=== PATIENT | male | born 1980 | race Caucasian/White ===

== ENCOUNTER 2019-04-30 07:24 | Emergency (ER) | payer BC ==
[~2019-04-30] VITALS: Ht 177.8 cm; Wt 87.5 kg
[~2019-04-30 07:24] MED LIST: CEPH500 PO; DIAZ5 PO; HYDACE5325 PO; NAPR550 PO; SULTRIDS PO
[2019-04-30] MEDS ORDERED: Norco 5-325 Ta1 EACH PO (08:55)
[2019-04-30] MEDS ORDERED: IBUP800 PO (08:55)
== END 2019-04-30 09:00 | disposition home or self-care (01) ==
LOC: ER 07:24
DX: M54.6 Pain in thoracic spine (principal)
CPT/HCPCS: 96372; 99283-25; J1170; J1885

== ENCOUNTER → 2021-06-08 | Outpatient (CLI) | payer BC ==
[~2021-06-08] MED LIST changes: +IBUP800 PO; +Norco 5-325 Ta1 EACH PO
[2021-06-08 12:23] LABS: BASOPHILS ABSOLUTE AUTO 0.05 K/mm3 (0.00-0.23); BASOPHILS PERCENT AUTO 1 % (0-2); EOSINOPHILS PERCENT AUTO 1 % (0-6); Hematocrit 43.7 % (37.0-53.0); Hemoglobin 14.7 g/dL (13.5-17.5); IMMATURE GRAN ABSOLUTE AUTO 0.04 K/mm3 (0.00-0.10); IMMATURE GRAN PERCENT AUTO 0 % (0-1); LYMPHOCYTES ABSOLUTE AUTO 1.97 K/mm3 (0.84-5.20); LYMPHOCYTES PERCENT AUTO 21 % (21-46); MONOCYTES ABSOLUTE AUTO 0.51 K/mm3 (0.16-1.47); MONOCYTES PERCENT AUTO 6 % (4-13); Mean Corpuscular HGB 29.3 pg (26.0-34.0); Mean Corpuscular HGB Conc 33.6 g/dL (31.5-36.5); Mean Corpuscular Volume 87 fL (80-100); Mean Platelet Volume 8.7 fL (9.1-12.4); NEUTROPHILS ABSOLUTE AUTO 6.64 K/mm3 (1.96-9.15); NEUTROPHILS PERCENT AUTO 71 % (41-73); Platelet Count 328 K/mm3 (150-400); RDW Coefficient Variation 12.4 % (11.7-14.2); RDW Standard Deviation 39.3 fL (35.1-46.3); Red Blood Cell Count 5.01 M/mm3 (4.30-5.90); White Blood Cell Count 9.31 K/mm3 (4.00-11.30)
[2021-06-08 12:46] LABS: Alanine Aminotransfer (ALT/SGP 33 U/L (12-78); Albumin, Blood 4.2 g/dL (3.4-5.0); Albumin/Globulin Ratio 1.4 (0.8-1.8); Alk Phos 79 U/L (40-126); Anion Gap 9 mmol/L (6-16); Aspartate Aminotrans (AST/SGOT 19 U/L (12-37); Bilirubin, Total 0.5 mg/dL (0.1-1.0); Blood Urea Nitrogen 20 mg/dL (8-24); CO2, Blood 30 mmol/L (21-32); Calcium, Blood 9.1 mg/dL (8.5-10.1); Chloride, Blood 106 mmol/L (98-108); Globulin, Blood 3.1 g/dL (2.2-4.0); Glomerular Filtration Rate >60 (60-); Glucose, Blood 86 mg/dL (70-99); Potassium, Blood 4.4 mmol/L (3.5-5.5); Sodium, Blood 145 mmol/L (136-145); Thyroid Stimulating Hormone 0.901 uIU/mL (0.360-4.800); Total Protein, Blood 7.3 g/dL (6.4-8.2)
== END ==
LOC: LAB SHORT 12:18 → LAB 12:18
PROVIDERS: Physician Assistant
DX: R55 Syncope and collapse (principal)
CPT/HCPCS: 80053; 84443; 85025; 85379